=== PATIENT | male | born 1965 ===

== ENCOUNTER 2017-11-22 10:17 | Emergency (ER) | payer BC ==
--- NOTE | 2017-11-22 10:54 | UC ---
Dizzy HPI HPI Summary: This is adela Sood documenting for attending Jason Melendrez MD. This patient is a 52 year old M presenting to [facility] accompanied by his with a chief complaint of dizziness that began 3 days ago s/p root canal. Pt states that is has gotten worse since and that he has had prior dizziness issues a few weeks ago. The patient rates the pain 5/10 in severity. Symptoms aggravated by position change. Patient reports ear pain. Patient denies tooth pain and rash. Pt is not on Abx for his tooth. - History Of Current Complaint Chief Complaint: UCDizziness Stated Complaint: DIZZINESS Time Seen by Provider: 11/22/17 10:43 Hx Obtained From: Patient Onset/Duration: Lasting Days, Still Present Timing: Constant Severity Initially: Moderate Severity Currently: Moderate Pain Intensity: 5 Pain Scale Used: 0-10 Numeric Character: Room Spinning Aggravating Factor(s): Position Change Associated Signs And Symptoms: Positive: Negative - tooth pain and rash - Allergies/Home Medications Allergies/Adverse Reactions: Allergies Allergy/AdvReac Type Severity Reaction Status Date / Time environmental Allergy unk Uncoded 11/22/17 10:31 PMH/Surg Hx/FS Hx/Imm Hx Endocrine History: Other Other Endocrine History: shingles Other History Of: Negative For: Anticoagulant Therapy - Surgical History Surgical History: Yes Surgery Procedure, Year, and Place: rhino septoplasty,elbow right - Family History Known Family History: Positive: Diabetes Negative: Renal Disease, Seizure Disorder - Social History Occupation: Employed Full-time Lives: With Family Alcohol Use: Weekly Substance Use Type: None Smoking Status (MU): Never Smoked Tobacco Review of Systems ENT: Ear Ache Neurological: Other - dizziness All Other Systems Reviewed And Are Negative: Yes Physical Exam - Summary Physical Exam Summary: General: well-appearing, no pain distress Skin: warm, color reflects adequate perfusion, dry Head: normal Eyes: EOMI, MARIEL, No nystagmus ENT: Right lower molar recent dental work, no gum swelling, Mild TTP at origin of right occipital nerve there appears to be a couple of bubbles on right tm, no erythema Neck: supple, nontender Respiratory: CTA, breath sounds present Cardiovascular: RRR Abdomen: soft, nontender Bowel: present Musculoskeletal: normal, strength/ROM intact Neurological: sensory/motor intact, A&O x3 Psychological: affect/mood appropriate Triage Information Reviewed: Yes Vital Signs: Initial Vital Signs Temp 98 F 11/22/17 10:24 Pulse 72 11/22/17 10:24 Resp 16 11/22/17 10:24 BP 125/83 11/22/17 10:24 Pulse Ox 98 11/22/17 10:24 Vital Signs Reviewed: Yes Dizzy Course/Dx - Course Course Of Treatment: NO SHINGLES RASH ON EXAM. THE SCALP IS MILDLY TENDER IN THE RT OCCIPIAL NERVE DISTRIBUTION. NO FOCAL NEUROLOGIC DEFICIT. WILL RX ABX FOR POSSIBLE DENTAL INFECTION AND RX MECLIZINE. DISCUSSED IF RASH APPEARS OR IF SX CONTINUE OR WORSEN TO GET RE EVALUATED. - Differential Dx/Diagnosis Provider Diagnoses: DIZZINESS. VERTIGO. DENTAL PAIN Discharge - Sign-Out/Discharge Documenting (check all that apply): Patient Departure - Discharge Plan Condition: Stable Disposition: HOME Prescriptions: Clindamycin Cap(NF) [Clindamycin Cap 300 mg Cap(NF)] 300 mg PO Q6H #40 cap Meclizine HCl [Motion Sickness Relief] 25 mg PO Q6H PRN #20 tablet PRN Reason: Dizziness Patient Education Materials: Vertigo (ED), Dizziness (ED) Referrals: [facility] [place] PHYSICIAN REFERRAL [Outside] Additional Instructions: FOLLOW UP WITH YOUR PRIMARY CARE DOCTOR IF NOT COMPLETELY IMPROVED. GET RECHECKED FOR ANY WORSENING OF YOUR CONDITION OR QUESTIONS OR CONCERNS. - Billing Disposition and Condition Condition: STABLE Disposition: Home Attestation Statement Scribe Attestation: This is adela Sood documenting for attending Jason Melendrez MD. User Type: Provider with Scribe Provider Attestation: The documentation recorded by the bevibe accurately reflects the service I personally performed and the decisions made by me.
== END 2017-11-22 11:15 | disposition home or self-care (01) ==
LOC: UCEAST 10:17
DX: R42 Dizziness and giddiness (principal); K08.89 Other specified disorders of teeth and supporting structures
CPT/HCPCS: 99202; G0463

== ENCOUNTER 2019-04-24 09:49 | Emergency (ER) | payer SELFPAY ==
--- NOTE | 2019-04-24 10:04 | UC ---
Respiratory Complaint HPI - HPI Summary HPI Summary: 53 yo male presents with URI symptoms. He tells me that over the last week he has had a worsening cough that was initially non-productive, but over the last 2 days has been productive with yellow phelgm. Last night felt wheezing in his lungs when lying down. Does have a hx of asthma, but does not have an inhaler at home. He has not been taking anything OTC for his symptoms. Denies fever, chills, sinus symptoms, SOB, chest pain. He smoke marijuana weekly, but no tobacco. - History of Current Complaint Stated Complaint: RESIRATORY ISSUES Time Seen by Provider: 04/24/19 10:03 Hx Obtained From: Patient Onset/Duration: Gradual Onset Severity Initially: Mild Severity Currently: Mild Pain Intensity: 4 Pain Scale Used: 0-10 Numeric - Allergies/Home Medications Allergies/Adverse Reactions: Allergies Allergy/AdvReac Type Severity Reaction Status Date / Time phenol [From Chloraseptic] Allergy Swelling Verified 04/24/19 10:08 Of Face,Lips,& Throat environmental Allergy unk Uncoded 04/24/19 10:07 Home Medications: Home Medications Dm/PE/Acetaminophen/Chlorphenr [Cold Multi-Symptom Day-Night] 1 each PO ONCE 01/03 [History Confirmed 04/24/19] PMH/Surg Hx/FS Hx/Imm Hx Respiratory History: Asthma Other History Of: Negative For: Anticoagulant Therapy - Surgical History Surgical History: Yes Surgery Procedure, Year, and Place: rhino septoplasty,elbow right - Family History Known Family History: Positive: Diabetes Negative: Renal Disease, Seizure Disorder - Social History Lives: With Family Alcohol Use: Weekly Substance Use Type: Marijuana Smoking Status (MU): Never Smoked Tobacco Review of Systems All Other Systems Reviewed And Are Negative: No Constitutional: Positive: Negative Skin: Positive: Negative Eyes: Positive: Negative ENT: Positive: Negative Respiratory: Positive: Cough Cardiovascular: Positive: Negative Gastrointestinal: Positive: Negative Neurological: Positive: Negative Psychological: Positive: Negative Physical Exam - Summary Physical Exam Summary: GENERAL: NAD. WDWN. No pain distress. SKIN: No rashes, sores, lesions, or open wounds. HEENT: Head: AT/NC Eyes: EOM intact. Conjunctiva clear without inflammation or discharge. Ears: Hearing grossly normal. TMs intact, no bulging, erythema, or edema. Nose: Nasal mucosa pink and moist. NTTP maxillary and frontal sinus. Throat: Posterior oropharynx without exudates, erythema, or tonsillar enlargement. Uvula midline. NECK: Supple. Nontender. No lymphadenopathy. CHEST: CTAB. No r/r/w. No accessory muscle use. Breathing comfortably and in no distress. CV: RRR. Pulses intact. Cap refill <2seconds NEURO: Alert. PSYCH: Age appropriate behavior. Triage Information Reviewed: Yes Vital Signs: Vital Signs: Temp Pulse Resp BP Pulse Ox 97.9 F 68 16 141/87 97 04/24/19 10:09 04/24/19 10:09 04/24/19 10:09 04/24/19 10:04/24/19 10:09 Vital Signs Reviewed: Yes Diagnostics - Radiology CXR Radiology Interpretation Completed By: Radiologist Summary of Radiographic Findings: IMPRESSION: HYPERINFLATION, CONSISTENT WITH COPD. NO ACTIVE CARDIOPULMONARY DISEASE. Respiratory Course/Dx - Course Course Of Treatment: CXR as above. Suspect bronchitis. - Differential Dx/Diagnosis Provider Diagnosis: Bronchitis Discharge ED - Sign-Out/Discharge Documenting (check all that apply): Patient Departure All imaging exams completed and their final reports reviewed: No Studies - Discharge Plan Condition: Stable Disposition: HOME Prescriptions: Albuterol HFA INHALER* [Ventolin HFA Inhaler*] 1 puff INH Q6H PRN #1 mdi PRN Reason: Sob/Wheezing Azithromycin TAB* [Zithromax TAB (Z-EMELIA) 250 mg #6 tabs] 2 tab PO .TODAY, THEN 1 DAILY #1 emelia Benzonatate CAP* [Tessalon 100 MG CAP*] 100 mg PO TID PRN #21 cap PRN Reason: Cough Codeine Phosphate/Guaifenesin [Guaifen-Codeine 100-10 mg/5 ml] 5 ml PO BEDTIME PRN #35 ml MDD 5mL PRN Reason: Cough Patient Education Materials: Acute Bronchitis (ED) Referrals: No Primary Care Phys,NOPCP [Primary Care Provider] - Additional Instructions: If you develop a fever, shortness of breath, chest pain, new or worsening symptoms - please call your PCP or go to the ED immediately. Your blood pressure was high at todays visit. Please see your primary provider within 4 weeks for recheck and re-evaluation. - Billing Disposition and Condition Condition: STABLE Disposition: Home
[2019-04-24 10:18] VITALS: BP 141/87
== END 2019-04-24 11:14 | disposition home or self-care (01) ==
LOC: UCEAST 09:49
DX: J45.909 Unspecified asthma, uncomplicated (principal); R91.8 Other nonspecific abnormal finding of lung field; Z91.09 Other allergy status, other than to drugs and biological substances
CPT/HCPCS: 71046; 99212; G0463

== ENCOUNTER 2019-06-26 10:11 | Emergency (ER) | payer BC ==
--- OUTSIDE RECORDS SUMMARY | 2019-06-26 10:16 | XMS REPORT | Continuity of Care Document ---
:1965 External Reference #:[id number] Author Name Helen Canseco NP Address [address] [place] [address] Care Team Providers Name Role Phone Nadine Faria M.D. - Family Medicine Care Team Information Sort Worker Problems Description No Information Available Social History Type Date Description Comments Sex Unknown Tobacco Use Start: Unknown Nonsmoker ETOH Use Social Alcohol ETOH Use Occasional Tobacco Use Start: Unknown Nonsmoker denies tobacco use Smoking Status Reviewed: 06/20/19 Nonsmoker denies tobacco use Allergies, Adverse Reactions, Alerts Description No Known Drug Allergies Medications Active Medications SIG Qnty Indications Ordering Provider Date Alprazolam take 1 tablet by 30tabs F41.9 Helen Alex 06/20/2019 0.25mg mouth twice a day ANA Canseco Tablets as needed for anxiety Albuterol Sulfate take 1-2 puffs Unknown HFA inhaled every 4 108(90Base) hours as needed mcg/Act Aerosol for shortness of breath History Medications No Active Medications Unknown 06/20/2019 - 06/20/2019 Immunizations Description No Information Available Vital Signs Date Vital Result Comment 06/20/2019 2:10pm BP Systolic 120 mmHg BP Diastolic 88 mmHg Heart Rate 72 /min Body Temperature 98.3 F Respiratory Rate 16 /min Height 72 inches 6'0" Weight 215.00 lb BMI (Body Mass Index) 29.2 kg/m2 Results Description No Information Available Procedures Date Code Description Status 04/16/2014 78787067 Colonoscopy Completed Medical Devices Description No Information Available Encounters Description No Information Available Assessments Date Code Description Provider 06/20/2019 F41.9 Anxiety disorder, unspecified Helen Canseco NP 06/20/2019 F52.21 Male erectile disorder Helen Canseco NP 06/20/2019 R53.83 Other fatigue Helen Canseco NP 06/20/2019 Z13.220 Encounter for screening for lipoid Helen Canseco NP disorders 06/20/2019 R10.11 Right upper quadrant pain Helen Canseco NP Plan of Treatment Future Appointment(s):06/27/2019 9:30 am - Nadine Faria M.D. at [id number]/2019 - Helen Canseco NPF41.9 Anxiety disorder, unspecifiedNew Medication:Alprazolam 0.25 mg - take 1 tablet by mouth twice a day as needed for anxietyComments:Xanax is to be used as an "as needed" medication for anxiety /insomnia. If you use this medication donot drink alcohol, do not drive as it may make you sleepy. Keep this medication in a safe place, it is a controlled substance. Taking medicine and going to talk therapy can get you started on the road to feeling better. It can also help you take care of your body and relationships. To help improve your condition:Get enough sleep.Eat healthy foods.Keep a regular daily schedule.Get out of the house every day.Exercise every day. Even a little bit of exercise, such as a 15-minute walk, can help.Stay away from alcohol and street drugs.Talk with family or friends when you feel nervous or frightened.Find out about different types of group activities you can join. patient instructed to call back if condition fails to improve or worsens.Follow up:4-6 [id number] Male erectile disorderComments: What types of sex problems can men have?Sex problems in men can include:?Being unable to get or keepan erection most times you have sex. Doctors call this "impotence" or "erectile dysfunction."?Havinglittle or no interest in sex. Doctors call this "low libido."?Ejaculating too soon after sex begins,before they are ready to ejaculate. Doctors call this "premature ejaculation."?Being unable to ejaculate (even though they can get and keep an erection).What causes sex problems?Men can have trouble getting or keeping an erection if they have a condition that keeps the penis from getting enough blood.Things that reduce blood flow to the penis can include:?Getting older?Diabetes?High blood pressure? Smoking?Drinking alcohol or taking drugsSex problems can also occur when men feel depressed or worried, or have problems with their partner or relationship. Plus, sex problems can be a side effect of certain medicines. For example, medicines to treat depression or heart disease sometimes cause sex problems.Should I see a doctor or nurse?Yes. Your doctor or nurse can help figure out the cause of your problem. He or she will talk with you, do an exam, and order blood tests. He or she might also order another test, such as a test that measures your night-time erections.Is there anything I can do on my own to improve things?Maybe. If you are having relationship problems, you can try to improve your relationship with your partner. For example, you can:?Talk to your partner about how to make sex better?Make an effort to have more fun together by having a regular "date night"?Read books or websites aboutsex?Go to counseling, either on your own or with your partnerIf you are overweight, losing weight might help improve your sex problems. Getting regular exercise can help, too, even if you are not overweight.How are sex problems treated? Treatment depends on the cause of the problem and can include:?Medicines to help you get and keep an erection – Examples of these medicines include sildenafil (sample brand name: Viagra), vardenafil (sample brand name: Levitra) , tadalafil (sample brand name: Cialis), and avanafil (sample brand name: Stendra). These medicines can cause side effects, such as lowblood pressure. It' s important to follow your doctor's instructions closely when taking these medicines. Also, let your doctor know if you are taking any other medicines, as certain combinations can beunsafe. Men who take certain medicines should not take medicines to get an erection. Examples include "nitrates" that are used to treat heart problems, and certain "alpha blockers" that are used to treat an enlarged prostate gland.Some medicines for treating sex problems are sold over the internet. However, these are not always safe, and they can even contain harmful ingredients.?Devices to help you get and keep an erection – Erection devices work in different ways. Some are implanted into the penis to form an erection. Others work a bit like a vacuum and help pull blood into the penis.?Hormone treatment – Sex problems can happen when a man's body does not make enough male hormones (testosterone). If your hormone levels are very low, your doctor might treat you with testosterone, which can come in a shot, skin patch, skin gel, capsule, or tablet that sticks to your gums.? Treatment to improve mood – Doctors might prescribe medicines or counseling for men who feel depressed or worried.?Treatments to delay ejaculation – Doctors can prescribe medicines to keep men from ejaculating too quickly. Some of the medicines used to treat depression work very well for this. Somemen also use a method called "pause and squeeze." In this method, a man stops having sex and pressesbehind the tip of the penis when he feels like he is going to ejaculate. After the feeling goes away, he continues having sex.?Treatment to help ejaculation problems caused by depression medicines – Sometimes, medicines used to treat depression can make it hard or impossible for a man to ejaculate. Let your doctor know if this happens. He or she can change your dose or your medicine so the problem gets better.R53.83 Other fatigueNew Labs:CBC Electronic-[facility], Ordered: 10/03Comp Metabolic-[facility], Ordered: 06/20/19TSH ([facility]), Ordered: 06/20/19Comments:The patient was instructed to call or return to the office if there was no improvement . we will run some labs - suspect related to the sleeplike we discussed, I think this all cycles andfits together with the increased stress in your life. I think if we can control that, the stomach, the fatigue, the sleep etc will all start to improve with time. I want you to focus on self care. Try to practice good sleep hygiene: - try to go to sleep and wake up at the same time each night- make the bed a "screen free" zone by minimizing use of phone, tablets, tv, videos- avoid caffeine and other stimulants after 2pm - try some relaxation exercises before bed like meditation , deep breathing or mindfulness.Z13.220 Encounter for screening for lipoid disordersNew Labs:Lipid Panel-[facility], Ordered: 06/20/19R10.11 Right upper quadrant painNew Labs:Amylase ([facility]), Ordered: 06/20/19New Xrays:Ultrasound Abdominal Limited, Ordered: 06/20/19Comments:The patient was instructed to call if symptoms of abdominal pain worsen. will run some labs and evaluate the gallbladder patient instructed to call back if condition fails to improve or worsens. avoid trigger foodsAllComments:Medication Management Patient Understands medications he 's taking? Yes No Are there Barriers to Adherence? Yes No Has the patient been asked about herbal supplements and therapies, andOTC meds? Yes No Care Plan1. Patient has been queried about patient's goals/preferences and functional/ lifestyle goals at relevant visits. If relevant, describe: na2. Treatment goals as explained to the patient: above3. Are there barriers to meeting treatment goals? Yes No If Yes, please describe: financial, lifestyle, stress, time, disease process 4. Self-Management goalsas described to the patient: Yes NoAs always, we strongly encourage a healthy diet and making physical activity a part of your every day life. If you have questions about how or where to start, please contact the office. Functional Status Description No Information Available Mental Status Description No Information Available Referrals Description No Information Available
[2019-06-26 10:52] VITALS: BP 131/62
--- NOTE | 2019-06-26 11:22 | UC ---
Abdominal Pain Male HPI - HPI Summary HPI Summary: 53-year-old male comes in with a chief complaint of right upper quadrant pain. Is been going on for couple of months has been intermittent. It's worse after he eats.'s been having it and night time it's been making it difficult for him to sleep. No fevers measured. Occasionally when he wakes up the middle night his heart will be racing and he was of left upper chest pain. At this time is no chest pain. Patient still has his gallbladder. No shortness of breath no chest congestion. - History of Current Complaint Chief Complaint: UCAbdominalPain Stated Complaint: ABDOMINAL PAIN Time Seen by Provider: 06/26/19 11:05 Pain Intensity: 3 - Allergies/Home Medications Allergies/Adverse Reactions: Allergies Allergy/AdvReac Type Severity Reaction Status Date / Time phenol [From Chloraseptic] Allergy Swelling Verified 06/26/19 10:53 Of Face,Lips,& Throat environmental Allergy unk Uncoded 06/26/19 10:53 Home Medications: Home Medications ALPRAZolam TAB* [Xanax TAB*] 1 tab PO DAILY 06/26/19 [History Confirmed 06/26/19 ] PMH/Surg Hx/FS Hx/Imm Hx Previously Healthy: Yes Psychological History: Anxiety Other History Of: Negative For: Anticoagulant Therapy - Surgical History Surgical History: Yes Surgery Procedure, Year, and Place: rhino septoplasty,elbow right - Family History Known Family History: Positive: Diabetes Negative: Renal Disease, Seizure Disorder - Social History Alcohol Use: Weekly Substance Use Type: Marijuana Substance Use Comment - Amount & Last Used: daily - smokes Smoking Status (MU): Never Smoked Tobacco Review of Systems All Other Systems Reviewed And Are Negative: Yes Constitutional: Positive: Other - see hpi Skin: Positive: Negative Eyes: Positive: Negative ENT: Positive: Negative Respiratory: Positive: Negative Cardiovascular: Positive: Palpitations, Chest Pain Gastrointestinal: Positive: Abdominal Pain Motor: Positive: Negative Neurovascular: Positive: Negative Musculoskeletal: Positive: Negative Neurological/Mental Status: Positive: Negative Psychological: Positive: Negative Is Patient Immunocompromised?: No Physical Exam Triage Information Reviewed: Yes Appearance: Well-Appearing, No Pain Distress, Well-Nourished Vital Signs: Initial Vital Signs Temp 98.2 F 06/26/19 10:46 Pulse 77 06/26/19 10:46 Resp 16 06/26/19 10:46 BP 131/62 06/26/19 10:46 Pulse Ox 97 06/26/19 10:46 Vital Signs Reviewed: Yes Eye Exam: Normal Eyes: Positive: Conjunctiva Clear Neck: Positive: Supple Respiratory: Positive: Lungs clear, Normal breath sounds, No respiratory distress Cardiovascular: Positive: RRR Abdomen Description: Positive: Other: - Mild tenderness to palpation right upper quadrant. Positive bowel sounds. Bowel Sounds: Positive: Present Musculoskeletal: Positive: Strength Intact, ROM Intact Neurological: Positive: Alert, Muscle Tone Normal Psychological: Positive: Normal Response To Family, Age Appropriate Behavior Skin Exam: Normal Diagnostics - EKG Cardiac Rate: NL - AT 1101 Cardiac Rhythm: Sinus: Normal - 69BPM Ectopy: None ST Segment: Normal Abd Pain Male Course/Dx - Course Course Of Treatment: I discussed the EKG results with the patient and his . I do not see any ischemic changes. Patient is tender to palpation in the right upper quadrant. The chest pain may be due to his gallbladder. However because I cannot fully investigate causes of chest pain and palpitations and cannot get real-time labs here in clinic I recommended further evaluation in the emergency department. Patient with by POV. - Differential Dx/Clinical Impression Provider Diagnosis: Right upper quadrant abdominal pain, Chest pain, Palpitations Discharge ED - Sign-Out/Discharge Documenting (check all that apply): Patient Departure All imaging exams completed and their final reports reviewed: No Studies - Discharge Plan Condition: Stable Disposition: HOME-RECOMMEND TO ED Patient Education Materials: Chest Pain (ED), Heart Palpitations (ED), Acute Abdominal Pain (ED) Referrals: Nadine Faria MD [Primary Care Provider] - Additional Instructions: GO DIRECTLY TO THE EMERGENCY DEPARTMENT FOR FURTHER EVALUATION OF YOUR RIGHT UPPER QUADRANT ABDOMINAL PAIN, CHEST PAIN AND PALPITATIONS. - Billing Disposition and Condition Condition: STABLE Disposition: Home-Recommend to ED
== END 2019-06-26 11:39 | disposition home health service (06) ==
LOC: UCEAST 10:11
DX: R10.11 Right upper quadrant pain (principal); R07.89 Other chest pain; R00.2 Palpitations; F41.9 Anxiety disorder, unspecified; Z91.09 Other allergy status, other than to drugs and biological substances; Z88.8 Allergy status to other drugs, medicaments and biological substances; Z79.899 Other long term (current) drug therapy
CPT/HCPCS: 93005; 99212; G0463

== ENCOUNTER 2019-06-26 11:59 | Emergency (ER) | payer BC ==
--- NOTE | 2019-06-26 12:26 | ED ---
Abdominal Pain/Male - HPI Summary HPI Summary: Patient is a 53 year-old male presenting to [facility] accompanied by with a chief complaint of right upper quadrant pain worsening over the last week. He reports that in April 2019 he began experiencing pain in the right upper abdomen that has persisted, although he had not followed with a PCP due to insurance issues until 06/20/2019. Over the last week, the pain worsened causing difficulty sleeping. He has been taking Xanax to help him sleep as prescribed. He endorses decreased stool output with bowel movements, increased gas output, and decreased appetite. He does not have a history of diverticulitis or gallbladder issues, but there is diverticulitis in his family. He also notes that over the past few days he has been experiencing intermittent episodes of left anterior chest pain radiating into the left arm during the night with occasional palpitations. He does not have this pain now, but there is family history of cardiac disease in his parents with his father suffering from two MIs. He denies any fever, chills, erythema of eyes, sore throat, shortness of breath, cough, nausea, vomiting, dysuria, hematuria, myalgia, edema, rash, or dizziness. Symptoms are currently rated 3/10 in severity. Pain is aggravated with eating and sitting for extended periods of time. He has been exercising more recently, but he notes that he sometimes has pain. There is occasional worsening of pain with deep breathing. He states that he does drive a lot has occasionally goes on long distance trips, with a recent 10-hour trip about a week ago. He also notes that he changed his diet about three years ago to vegan- based, and he has recently been reintroducing chicken into his diet. Past medical history includes asthma, seasonal allergies, sinus surgery, ulnar ligament surgery with nerve damage. Nonsmoker, weekly alcohol use, occasional marijuana use changed from daily use before April 2019. Medications reviewed. Allergies noted. - History of Current Complaint Chief Complaint: EDAbdPain Stated Complaint: GALLBLADDER PAIN PER PT Time Seen by Provider: 06/26/19 12:06 Hx Obtained From: Patient Onset/Duration: Gradual Onset, Lasting Days, Still Present Timing: Intermittent Severity Initially: Moderate Severity Currently: Mild Pain Intensity: 2 Pain Scale Used: 0-10 Numeric Location: Discrete At: RUQ Radiates: No Aggravating Factor(s): Food, Other: - sitting extended periods of time, exertion , deep breathing Alleviating Factor(s): Nothing Associated Signs And Symptoms: Positive: Chest Pain, Decreased Appetite, Other - decreased stool output, increased gas output; Negative: chills, erythema of eyes, sore throat, shortness of breath, myalgia, edema, rash. Negative: Fever, Cough, Dizzy, Urinary Symptoms, Nausea, Vomiting, Diarrhea - Allergies/Home Medications Allergies/Adverse Reactions: Allergies Allergy/AdvReac Type Severity Reaction Status Date / Time phenol [From Chloraseptic] Allergy Swelling Verified 06/26/19 12:05 Of Face,Lips,& Throat environmental Allergy unk Uncoded 06/26/19 12:05 Home Medications: Home Medications ALPRAZolam TAB* [Xanax TAB*] 1 tab PO DAILY 06/26/19 [History Confirmed 06/26/19 ] Acetaminophen TAB* [Tylenol TAB*] 325 mg PO Q4H PRN 06/26/19 [History Confirmed 06/26/19] Albuterol HFA INHALER* [Ventolin HFA Inhaler*] 2 puff INH Q4H PRN 06/26/19 [ History Confirmed 06/26/19] PMH/Surg Hx/FS Hx/Imm Hx Endocrine/Hematology History: Denies: Hx Anticoagulant Therapy, Hx Diabetes Cardiovascular History: Denies: Hx Hypercholesterolemia, Hx Hypertension Respiratory History: Reports: Hx Asthma, Hx Seasonal Allergies Sensory History: Reports: Hx Contacts or Glasses Opthamlomology History: Reports: Hx Contacts or Glasses - Surgical History Surgical History: Yes Surgery Procedure, Year, and Place: rhino septoplasty,elbow right Infectious Disease History: No Infectious Disease History: Denies: Traveled Outside the [place] in Last 30 Days - Family History Known Family History: Positive: Cardiac Disease - mother and father, [place] x2 in father, Diabetes Negative: Renal Disease, Seizure Disorder - Social History Alcohol Use: Weekly Hx Substance Use: Yes Substance Use Type: Reports: Marijuana Substance Use Comment - Amount & Last Used: daily - smokes Hx Tobacco Use: No Smoking Status (MU): Never Smoked Tobacco Review of Systems Negative: Fever, Chills Negative: Erythema Negative: Sore Throat Positive: Palpitations, Chest Pain Negative: Shortness Of Breath, Cough Positive: Abdominal Pain - RUQ, Other - decreased stool output, increased gas output, decreased appetite. Negative: Vomiting, Diarrhea, Nausea Negative: dysuria, hematuria Negative: Myalgia, Edema Negative: Rash Neurological/Mental Status: Other - Negative: dizziness All Other Systems Reviewed And Are Negative: Yes Physical Exam - Summary Physical Exam Summary: Constitutional: Well-developed, Well-nourished, Alert. (-) Distressed Skin: Warm, Dry HENT: Normocephalic; Atraumatic Eyes: Conjunctiva normal Neck: Musculoskeletal ROM normal neck. (-) JVD, (-) Stridor, (-) Tracheal deviation Cardio: Rhythm regular, rate normal, Heart sounds normal; Intact distal pulses; The pedal pulses are 2+ and symmetric. Radial pulses are 2+ and symmetric. (-) Murmur Pulmonary/Chest wall: Effort normal. (-) Respiratory distress, (-) Wheezes, (-) Rales Abd: Soft, (+) mild RUQ tenderness, no vesicles, (-) Distension, (-) Guarding, ( -) Rebound Musculoskeletal: (-) Edema Lymph: (-) Cervical adenopathy Neuro: Alert, Oriented x3 Psych: Mood and affect Normal Triage Information Reviewed: Yes Vital Signs On Initial Exam: Initial Vitals Temp Pulse Resp BP Pulse Ox 98.3 F 73 16 131/85 95 06/26/19 12:01 06/26/19 12:01 06/26/19 12:01 06/26/19 12:01 06/26/19 12:01 Vital Signs Reviewed: Yes Procedures - Sedation Patient Received Moderate/Deep Sedation with Procedure: No Diagnostics - Vital Signs Vital Signs Temp Pulse Resp BP Pulse Ox 06/26/19 12:01 98.3 F 73 16 131/85 95 - Laboratory Result Diagrams: 06/26/19 12:25 06/26/19 12:25 Lab Statement: Any lab studies that have been ordered have been reviewed, and results considered in the medical decision making process. - Ultrasound Gallbladder U/S Ultrasound Interpretation Completed By: Radiologist Summary of Ultrasound Findings: Impression: Unremarkable gallbladder. No intra or extra hepatic biliary ductal dilatation. ED physician has reviewed this report. - EKG 1220 Cardiac Rate: Bradycardia - 57 BPM EKG Rhythm: Sinus Bradycardia Summary of EKG Findings: An EKG at 1220 reveals sinus bradycardia at a rate of 57 BPM, R-R interval 1053. No STEMI. ED physician has reviewed and interpreted this EKG. Re-Evaluation - Re-Evaluation First Eval Re-Evaluation Time: 16:15 Change: Improved Comment: He is not experiencing pain now. We discussed all results and plan for discharge with PCP and GI follow up. Abdominal Pain Male Course/Dx - Course Course Of Treatment: Patient is a 53 year-old male presenting with RUQ pain onset initially two months ago with worsening over the last week accompanied by decreased stool output with bowel movements, increased gas output, and decreased appetite but no nausea, vomiting, diarrhea, or urinary symptoms. Patient additionally notes intermittent episodes of left anterior chest pain radiating into the left arm during the night with occasional palpitations. No cough or shortness of breath. Noted a lot of driving with occasional long distance. Family history of diverticulitis. Physical exam significant for mild RUQ tenderness, no vesicles. Patient placed on telemetry monitoring. IV access obtained. Blood work without significant abnormality except for BUN/creatinine 22. Negative troponin. TSH and free T4 within normal limits. Lipid profile shows triglycerides 95, cholesterol 221, LDL 162, HDL 40.2. EKG shows sinus bradycardia at a rate of 57 BPM, R-R interval 1053, no STEMI. Gallbladder U/S is negative for gallbladder disease or any intra or extra hepatic biliary ductal dilation. Second troponin is negative. All results discussed. Patient is safe for discharge. Patient is advised to follow up with his PCP in 3-5 days as well as gastroenterology in 1 weeks for scheduling a HIDA scan. We also recommended a stress test for the episodes of chest pain he has been experiencing. Patient is agreeable with plan. - Diagnoses Provider Diagnoses: Postprandial RUQ pain Discharge ED - Sign-Out/Discharge Documenting (check all that apply): Patient Departure - Patient will be dishcarged home. - Discharge Plan Condition: Stable Disposition: HOME Patient Education Materials: Abdominal Pain (ED) Referrals: Ubaldo Sanders MD [Medical Doctor] - 1 Week Nadine Faria MD [Primary Care Provider] - 5 Days Additional Instructions: Follow up with your primary care provider in 3-5 days. Follow up with a GI specialist in 1-2 weeks. We recommend a HIDA scan. You should also schedule a stress test. Return to the emergency department for any new or worsening symptoms. - Attestation Statements Document Initiated by Scribe: Yes Documenting Scribe: Bruna Judd Provider For Whom Nisaibe is Documenting (Include Credential): Eze Hinton MD Scribe Attestation: Bruna Cobos, scribed for Eze Hinton MD on 06/26/19 at 2213. Status of Scribe Document: Ready
[2019-06-26 12:33] LABS: ABS Basophils 0.1 10^3/ul (0-0.2); ABS Eosinophils 0.1 10^3/ul (0-0.6); ABS Lymphocytes 2.2 10^3/ul (1.0-4.8); ABS Monocytes 0.5 10^3/ul (0-0.8); Hematocrit 46 % (42-52); Hemoglobin 15.7 g/dL (14.0-18.0); Lymphocyte % 28.3 %; Mean Corpuscular HGB Conc 34 g/dL (31-36); Mean Corpuscular Hemoglobin 31 pg (27-31); Mean Corpuscular Volume 89 fL (80-94); Mean Platelet Volume 9.3 fL (7.4-10.4); Nucleated Red Blood Cells % 0.1; Platelet Count 225 10^3/uL (150-450); Red Blood Count 5.12 10^6 /uL (4.18-5.48); Red Cell Distribution Width 13 % (10-15); White Blood Count 7.9 10^3/uL (3.5-10.8)
[2019-06-26 12:50] LABS: Albumin 4.1 g/dL (3.2-5.2); Albumin/Globulin Ratio 1.4 (1-3); Calcium 9.2 mg/dL (8.6-10.3); EGFR Non-African American 97.5 (>60); Globulin 2.9 g/dL (2-4); Magnesium 2.1 mg/dL (1.9-2.7); Potassium 4.4 mmol/L (3.5-5.0); Total Bilirubin 0.9 mg/dL (0.2-1.0)
[2019-06-26 13:17] LABS: TSH (Thyroid Stimulating Horm) 0.78 mcIU/mL (0.34-5.60)
[2019-06-26 13:18] LABS: Free T4 1.12 ng/dL (0.61-1.12)
[2019-06-26 13:22] LABS: HDL Cholesterol 40.2 mg/dL
[2019-06-26 16:57] VITALS: BP 142/82
== END 2019-06-26 16:57 | disposition home or self-care (01) ==
LOC: ED 11:59
DX: R10.11 Right upper quadrant pain (principal); R00.2 Palpitations; R07.9 Chest pain, unspecified; G89.18 Other acute postprocedural pain; Z79.899 Other long term (current) drug therapy; Z82.49 Family history of ischemic heart disease and other diseases of the circulatory system
CPT/HCPCS: 36415; 76705; 80053; 80061; 83036; 83605; 83735; 84439; 84443; 84484; 85025; 93005; 99283